=== PATIENT | male | born 1970 | race Caucasian/White ===

== ENCOUNTER 2020-01-21 19:30 | Emergency (ER) | payer BC ==
[~2020-01-21] VITALS: Ht 180.3 cm; Wt 90.7 kg
[2020-01-21 20:36] LABS: ABSOLUTE EOSINOPHILS 0.1 thou/uL (0.0-0.7); ABSOLUTE LYMPHOCYTES 1.3 thou/uL (0.8-5.3); ABSOLUTE MONOCYTES 0.5 thou/uL (0.0-1.2); BASOPHILS 0.5 %; HEMATOCRIT 42.4 % (42.0-52.0); HEMOGLOBIN 14.6 gm/dL (14.0-18.0); LYMPHOCYTES 16.2 %; MCH 29.6 pg (26.0-34.0); MCHC 34.5 g/dL (28.0-37.0); MCV 85.9 fL (80.0-100.0); MONOCYTES 6.5 %; MPV 9.4 fl. (7.2-11.1); NUCLEATED RBCS 0 /100WBC; PLATELET COUNT* 195 thou/uL (150-400); POLYS 75.8 %; RBC 4.93 mil/uL (4.50-6.00); RDW-CV 13.3 % (10.5-14.5)
[2020-01-21 20:46] LABS: CALCIUM 9.1 mg/dL (8.5-10.1); CREATININE 1.4 mg/dL (0.6-1.3); POTASSIUM 3.4 mmol/L (3.5-5.1)
[2020-01-21 20:58] LABS: ALBUMIN 4.4 g/dL (3.4-5.0); TOTAL BILIRUBIN 0.5 mg/dL (<0.1-1.0); TOTAL PROTEIN 7.6 g/dL (6.4-8.2)
[2020-01-21] MEDS ORDERED: FLAGYL500 M1 PO (22:43)
[2020-01-21] MEDS ORDERED: CIPROFLOXACIN500 M1 PO (22:43)
[2020-01-21] MEDS ORDERED: ZOFRAN ODT4 MG PO (22:43)
[2020-01-21] MEDS ORDERED: HYDROCODON-ACE1 EAC7 PO (22:43)
[2020-01-21 23:21] VITALS: BP 148/86
== END 2020-01-21 23:23 | disposition home or self-care (01) ==
LOC: M.ERS 19:30
PROVIDERS: Personal Emergency Response Attendant
DX: K81.9 Cholecystitis, unspecified (principal)

== ENCOUNTER → 2020-01-31 | Outpatient (CLI) | payer BC ==
[~2020-01-31] MED LIST: CIPROFLOXACIN500 M1 PO; FLAGYL500 M1 PO; HYDROCODON-ACE1 EAC7 PO; ZOFRAN ODT4 MG PO
== END ==
LOC: M.NUC 07:19
PROVIDERS: ATTEND Family Medicine
DX: K83.9 Disease of biliary tract, unspecified (principal)